=== PATIENT | female | born 1980 | race Caucasian/White ===

== ENCOUNTER 2020-04-26 13:36 | Emergency (ER) | payer OTHER, SELFPAY ==
[2020-04-26 14:01] VITALS: BP 105/47; PULSE 68; RESP 18; TEMP 36.6; O2SAT 99; BMI 23.1
--- NOTE | 2020-04-26 15:04 | US_ITS ---
EXAMINATION: ULTRASOUND OF THE PELVIS CLINICAL INFORMATION: Pain. Irregular bleeding. COMPARISON: None. TECHNIQUE: Transabdominal and transvaginal pelvic ultrasound. A transvaginal study was performed in addition to the transabdominal study which did not yield an adequate examination of the uterus and ovaries due to superimposed distended gas-filled loops of bowel. FINDINGS: The uterus is normal in size and appearance, measuring 8.9 x 5.1 x 6.6 cm longitudinally, anteroposteriorly and transversely. The endometrium is not clearly visualized, likely secondary to the presence of the myometrial fibroid. There is a heterogeneous fibroid seen in the region of the uterine fundus and body measuring 4.5 x 3.9 x 4.3 cm. Nabothian cysts are noted at the cervix. The ovaries bilaterally are visualized and appear normal, with the right ovary measuring 2.6 x 2 x 2.7 cm and the left ovary measuring 3.2 x 1.8 x 2.4 cm. Follicles are seen bilaterally. No adnexal mass or free fluid collection seen. US/US pelvic complete IMPRESSION: Prominent fibroid at the uterine fundus. The endometrium is not well evaluated due to the mass effect by the uterine fibroid. There is no clear endometrial thickening..
[2020-04-26 15:05] VITALS: BP 97/52; PULSE 57; RESP 16; O2SAT 100
--- NOTE | 2020-04-26 15:05 | US_ITS ---
EXAMINATION: ULTRASOUND OF THE PELVIS CLINICAL INFORMATION: Pain. Irregular bleeding. COMPARISON: None. TECHNIQUE: Transabdominal and transvaginal pelvic ultrasound. A transvaginal study was performed in addition to the transabdominal study which did not yield an adequate examination of the uterus and ovaries due to superimposed distended gas-filled loops of bowel. FINDINGS: The uterus is normal in size and appearance, measuring 8.9 x 5.1 x 6.6 cm longitudinally, anteroposteriorly and transversely. The endometrium is not clearly visualized, likely secondary to the presence of the myometrial fibroid. There is a heterogeneous fibroid seen in the region of the uterine fundus and body measuring 4.5 x 3.9 x 4.3 cm. Nabothian cysts are noted at the cervix. The ovaries bilaterally are visualized and appear normal, with the right ovary measuring 2.6 x 2 x 2.7 cm and the left ovary measuring 3.2 x 1.8 x 2.4 cm. Follicles are seen bilaterally. No adnexal mass or free fluid collection seen. US/US transvaginal IMPRESSION: Prominent fibroid at the uterine fundus. The endometrium is not well evaluated due to the mass effect by the uterine fibroid. There is no clear endometrial thickening..
[2020-04-26 15:23] LABS: Basophils Absolute Auto 0.1 X10*3/uL (0.0-0.2); Basophils Percent Auto 0.6 % (0-2); Eosinophils Absolute Auto 0.2 X10*3/uL (0.0-0.4); Eosinophils Percent Auto 1.9 % (0-4); Hematocrit 34.1 % (37-47); Hemoglobin 11.2 g/dl (12.0-16.0); Imm Gran Abs Auto 0.02 X10*3/uL (0.00-0.03); Imm Gran Pct Auto 0.2 % (0.0-0.4); Lymphocytes Absolute Auto 2.9 X10*3/uL (1.2-4.9); Lymphocytes Percent Auto 32.1 % (20-40); MANUAL DIFF FLAG NO; Mean Corpuscular HGB Conc 32.8 g/dl (31.0-35.0); Mean Corpuscular Hemoglobin 29.7 pg (27.0-33.0); Mean Corpuscular Volume 90.5 fL (80-98); Mean Platelet Volume 11.6 fL (9.4-12.3); Monocytes Absolute Auto 0.5 X10*3/uL (0.1-1.2); Monocytes Percent Auto 5.5 % (2-11); Neutrophils Absolute Auto 5.3 X10*3/uL (2.0-8.3); Neutrophils Percent Auto 59.7 % (45-73); Platelet Count 188 X10*3/uL (160-400); Red Blood Count 3.77 X10*6/uL (4.20-5.50); Red Cell Distribution Width 13.3 % (11.0-16.0); White Blood Count 8.9 X10*3/uL (4.8-10.8)
[2020-04-26 15:25] LABS: Glucose Urine UA NEG (NEG); Leukocyte Esterase Urine 1+ (NEG); Nitrite Urine POS (NEG); Specific Gravity - Urine 1.015 (1.005-1.025); Urine Blood 3+ (NEG); Urine Ketones 5 MG/DL (NEG); Urine Protein 2+ MG/DL (NEG-TRACE)
[2020-04-26 15:26] LABS: Appearance Urine CLOUDY; Color Urine RED
[2020-04-26 15:27] LABS: UPreg QC Valid YES; Urine Pregnancy NEGATIVE (NEGATIVE)
[2020-04-26 15:33] LABS: Bacteria Urine 1+ /LPF; RBC Urine TNTC /HPF (0); Squamous Epithelial Cell Urine 1+ /LPF; WBC Urine 0 /HPF (0-4)
--- NOTE | 2020-04-26 15:37 | PC.NURSE ---
patient currently at ultrasound
[2020-04-26 15:53] LABS: Alanine Aminotransferase 12 U/L (0-31); Albumin Level 3.7 g/dL (3.5-5.0); Alkaline Phosphatase 61 U/L (39-117); Anion Gap 9 (12-20); Aspartate Amino Transferase 16 U/L (5-31); Bilirubin Total 0.3 mg/dL (0.0-1.0); Blood Urea Nitrogen 15 mg/dL (9-16); Calcium 8.4 mg/dL (8.4-10.2); Carbon Dioxide 28 mmol/L (22-29); Chloride 108 mmol/L (96-108); Creatinine Clr Calc Pharmacy 100.9; Estimated Glomerular Filt Rate > 60; Glucose Random 82 mg/dL (60-115); Potassium 3.6 mmol/l (3.3-5.1); Sodium 141 mmol/L (135-145); Total Protein 6.1 g/dL (6.5-8.0)
--- NOTE | 2020-04-26 17:45 | ED_ITS ---
HPI - Female Genitourinary General Chief complaint: Vaginal Bleeding Stated complaint: VAGINAL BLEEDING Time Seen by Provider: 04/26/20 14:41 Source: patient Mode of arrival: ambulatory Limitations: no limitations History of Present Illness HPI Narrative: States she has been having prolonged periods for several years now has seen furniture rental consultant at [facility] they did a workup unclear source last month her period was beginning of the month and lasted for additional week this month her period started at the beginning of the month and still it continues to have intermittent vaginal bleeding. She does report slight dysuria at times with slight suprapubic pain. She denies any nausea vomiting diarrhea. No back pain. No fever. No vaginal discharge or concern for STI. Severity: mild Female Urogenital Radiation: Non-Radiating Vaginal discharge: none Treatment prior to arrival: none Sexual activity: No Related Data Previous Rx's Medication Instructions Recorded naproxen 500 mg PO BID PRN #14 tab 04/26/20 nitrofurantoin monohyd/m-cryst 100 mg PO Q12H 7 Days #14 cap 04/26/20 [Macrobid] Allergies Allergy/AdvReac Type Severity Reaction Status Date / Time No Known Allergies Allergy Verified 04/26/20 14:03 Review of Systems Review of Systems: Constitutional: No Weight loss, No Fever, No Chills, No Night Sweats, No Fatigue, No Malaise ENT/Mouth: No Hearing loss, No Ear Pain, No Nasal Congestion, No Sinus Pain, No Hoarseness, No sore throat, No Rhinorrhea Eyes: No Eye Pain, No Swelling, No Redness, No Foreign Body, No Discharge, No Vision Changes Cardiovascular: No Chest Pain, No SOB, No Dyspnea on Exertion Respiratory: No Cough, No Sputum, No Wheezing, No Smoke Exposure, No Dyspnea Gastrointestinal: No Nausea, No Vomiting, No Diarrhea, No Constipation, No abdominal Pain Genitourinary: + irregular bleeding, + Dysuria, No Urinary Frequency, No Hematuria, No Urinary Incontinence, No Urgency, No Flank Pain, No Urinary Flow Changes, No Hesitancy Musculoskeletal: No joint pain, No Myalgias, No Joint Swelling Skin: No Skin Lesions, No rash Neuro: No Weakness, No Numbness, No Paresthesias, No Loss of Consciousness, No Dizziness, No Headache Psych: No Social Issues Heme/Lymph: No Bruising, No Bleeding,No Lymphadenopathy Endocrine: No Polyuria, No Polydipsia, No Temperature Intolerance Yes all other systems are reviewed and are negative [facility] Past Medical History Attestation statement: The following information was validated with the patient. Medical History (Updated 04/26/20 @ 17:48 by Travis Orlando NP) Anemia Social History Social History Alcohol intake: current Smoking Status: Current every day smoker Smoked in Last 30 Days: Yes Use of substances other than those prescribed or required for medical reasons: No Advance Directives: No Advance Directives Information Provided: No Physical Exam Vital Signs: Vital Signs: Last Vital Signs Temp 97.8 F 04/26/20 14:01 Pulse 57 04/26/20 15:05 Resp 16 04/26/20 15:05 BP 97/52 L 04/26/20 15:05 Pulse Ox 100 04/26/20 15:05 Body Mass Index 23.1 Reviewed Const: General: cooperative and healthy appearing; No acute distress or intoxicated appearing Nutritional Appearance: average body habitus Orientation/consciousness: patient oriented x3 HENMT: Head: Yes normal to inspection Ears: hearing grossly normal bilate rally Eyes: General: appearance normal, both eyes and all related structures Visual Alfred: normal visual alfred by confrontation Neck: Neck: Yes normal visual inspection and No tender Thyroid: Thyroid normal Chest: Chest palpation & inspection: normal inspection of the chest Resp: Effort & Inspection: normal respiratory effort Cardio: Jugular venous distension: no JVD GI: Inspection: Yes normal to inspection Palpation (GI): Soft to palpation, not firm, nontender, no guarding, not rigid and hepatosplenomegaly present Percussion: Yes normal to percussion Auscultation: normal bowel sounds : General: Yes no CVA tenderness Back/Spine/Pelvis: Back: no CVA tenderness Skin: General skin exam: no rashes or lesions noted Neuro: General: patient oriented x3 Extrem: General: Yes normal to inspection MDM - Female Genitourinary MDM Narrative Medical decision making narrative: Lab/ultrasound findings reviewed. Appears comfortable no pain at this time. No active bleeding at this time. H&H is stable. Will follow-up with her furniture rental consultant team. Differential Diagnosis Differential diagnosis: Likely urinary tract infection and dysmenorrhea; Unli shun bacterial vaginosis, trichomoniasis, cervicitis, ovarian cyst, vaginitis, ruptured ovarian cyst and cyst of Bartholin's gland Medical Records Attestation: I reviewed the patient's medical records. Lab Data Attestation: I reviewed the patient's lab results. Result diagrams: 04/26/20 15:15 04/26/20 15:16 Labs: Lab Results 04/26/20 04/26/20 04/26/20 Range/Units 15:15 15:15 15:16 WBC 8.9 (4.8-10.8) X10*3/uL RBC 3.77 L (4.20-5.50) X10*6/uL Hgb 11.2 L (12.0-16.0) g/dl Hct 34.1 L (37-47) % MCV 90.5 (80-98) fL MCH 29.7 (27.0-33.0) pg MCHC 32.8 (31.0-35.0) g/dl RDW 13.3 (11.0-16.0) % Plt Count 188 (160-400) X10*3/uL MPV 11.6 (9.4-12.3) fL Immature Gran % (Auto) 0.2 (0.0-0.4) % Neut % (Auto) 59.7 (45-73) % Lymph % (Auto) 32.1 (20-40) % Jones % (Auto) 5.5 (2-11) % Eos % (Auto) 1.9 (0-4) % Baso % (Auto) 0.6 (0-2) % Lymph # (Auto) 2.9 (1.2-4.9) X10*3/uL Jones # (Auto) 0.5 (0.1-1.2) X10*3/uL Eos # (Auto) 0.2 (0.0-0.4) X10*3/uL Baso # (Auto) 0.1 (0.0-0.2) X10*3/uL Abs Immat Gran (auto) 0.02 (0.00-0.03) X10*3/uL Absolute Neuts (auto) 5.3 (2.0-8.3) X10*3/uL Absolute Nucleated RBC 0.000 (0.0-0.012) X10*3/uL Nucleated RBC % (auto) 0.0 (0.0-0.2) /100WBC Sodium 141 (135-145) mmol/L Potassium 3.6 (3.3-5.1) mmol/l Chloride 108 (96-108) mmol/L Carbon Dioxide 28 (22-29) mmol/L Anion Gap 9 L (12-20) BUN 15 (9-16) mg/dL Creatinine 0.64 (0.5-1.4) mg/dL Estim Creat Clear Calc 100.9 Estimated GFR > 60 Random Glucose 82 (60-115) mg/dL Calcium 8.4 (8.4-10.2) mg/dL Total Bilirubin 0.3 (0.0-1.0) mg/dL AST 16 (5-31) U/L ALT 12 (0-31) U/L Alkaline Phosphatase 61 (39-117) U/L Total Protein 6.1 L (6.5-8.0) g/dL Albumin 3.7 (3.5-5.0) g/dL Urine Color RED Urine Appearance CLOUDY Urine pH 7.0 (5.0-8.0) Ur Specific [place] 1.015 (1.005-1.025) Urine Protein 2+ H (NEG-TRACE) MG/DL Urine Glucose (UA) NEG (NEG) MG/DL Urine Ketones 5 (NEG) MG/DL Urine Blood 3+ H (NEG) Urine Nitrite POS H (NEG) Ur Leukocyte Esterase 1+ H (NEG) Urine RBC TNTC H (0) /HPF Urine WBC 0 (0-4) /HPF Ur Squamous Epith Cells 1+ /LPF Urine Bacteria 1+ /LPF Urine Test NEGATIVE (NEGATIVE) Discharge Plan Discharge Clinical Impression: Dysfunctional uterine bleeding, UTI (urinary tract infection) Patient Disposition: Home, Self-Care Instructions: Dysfunctional Uterine Bleeding (ED), Urinary Tract Infection in Women (ED) Additional Instructions: Taking medications prescribed Follow-up with your furniture rental consultant team as discussed Return if any concerns or worsening symptoms Thank you Prescriptions: New naproxen 500 mg tablet 500 mg PO BID PRN (Reason: pain) Qty: 14 RF: 0 nitrofurantoin monohyd/m-cryst [Macrobid] 100 mg capsule 100 mg PO Q12H 7 Days Qty: 14 RF: 0 Referrals: Physician,Unknown [Primary Care Provider] - 2 days (Your furniture rental consultant team at [facility]) Braulio Madrigal MD [Physician] - 1 week
[2020-04-26 17:51] VITALS: BP 99/44; PULSE 58; RESP 16; O2SAT 100
== END 2020-04-26 18:00 | disposition home or self-care (01) ==
PROVIDERS: Nurse Practitioner Primary Care; Emergency Provider Emergency Medicine
DX: N93.8 Other specified abnormal uterine and vaginal bleeding (principal); N39.0 Urinary tract infection, site not specified; R10.2 Pelvic and perineal pain; F17.200 Nicotine dependence, unspecified, uncomplicated; Z71.6 Tobacco abuse counseling; Z79.899 Other long term (current) drug therapy
CPT/HCPCS: 36415; 76830; 76856; 80053; 81001; 81025; 85025; 87086; 99284

== ENCOUNTER 2020-09-17 07:27 | Emergency (ER) | payer OTHER, SELFPAY ==
[2020-09-17 07:33] VITALS: BP 105/63; PULSE 90; RESP 16; TEMP 36.6; O2SAT 100; BMI 24.1
[2020-09-17 08:01] VITALS: BP 107/65; PULSE 80; RESP 14; O2SAT 99
--- NOTE | 2020-09-17 08:06 | PC.NURSE ---
pt reports about 3 months ago with perineum bumps that comes and goes some with oozing liquids, some are dry. more itching than painful.
--- NOTE | 2020-09-17 08:34 | ED.SKABFB ---
HPI - Skin/Abscess/Foreign Bdy General Chief complaint: Skin/Abscess/Foreign Body Stated complaint: ABSCESS Time Seen by Provider: 09/17/20 08:25 Source: patient Mode of arrival: ambulatory Limitations: language barrier ([place]aguayan-speaking) History of Present Illness HPI narrative: 40-year-old female with a past medical history of labia abscess presenting to the ED with complaints of smaller pimple to the labia is for the past few days worse today. Reports she has had them drained in the past by her OBGYN and she has stop shaving using any scented lotions or soaps. Denies any fevers, chills, abdominal pain, dysuria, hematuria, abnormal vaginal discharge or thoughts of STDs. MD complaint: abscess/boil Onset (ago): day(s) (Past few days worse today) Location: genitals Severity: mild Quality: aching Pain Consistency: constant Relieving factors: none Exacerbating factors: palpation Context: none Associated symptoms: denies other symptoms Treatments prior to arrival: attempted to drain pus at home Related Data Previous Rx's Medication Instructions Recorded naproxen 500 mg PO BID PRN #14 tab 04/26/20 nitrofurantoin monohyd/m-cryst 100 mg PO Q12H 7 Days #14 cap 04/26/20 [Macrobid] cephalexin 500 mg PO BID 10 Days #20 cap 09/17/20 doxycycline monohydrate 100 mg PO BID 10 Days #20 cap 09/17/20 ibuprofen 800 mg PO Q8H PRN #14 tab 09/17/20 oxycodone-acetaminophen [Percocet] 1 tab PO Q6H PRN #10 tab 09/17/20 Allergies Allergy/AdvReac Type Severity Reaction Status Date / Time No Known Allergies Allergy Verified 04/26/20 14:03 Review of Systems Review of Systems: Constitutional : No Fever, No Chills , no body aches, no recent illness Head/Face: No facial swelling, No facial redness ENT/Mouth : No oral/throat swelling, No Hoarseness, No Swallowing Difficulty Eyes: No Eye Pain, No Swelling, No Redness Cardiovascular : No Chest Pain, No SOB, No palpitations Respiratory : No Cough, No Sputum, No Wheezing, No Smoke Exposure, No Dyspnea Gastrointestinal : No Nausea, No Vomiting, No Diarrhea, No abdominal Pain Genitourinary : No Dysuria, No Urinary Frequency, No Hematuria Musculoskeletal : No joint pain, No Myalgias, No Joint Swelling Skin : positive abscess, No Skin Lesions, No rash Neuro : No Weakness, No Numbness, No Headache, No dizziness, No tingling Psych : No Anxiety/Panic, No Depression Heme/Lymph: No Bruising, No Lymphadenopathy Endocrine : No Polyuria, No Polydipsia Denies changes in lotions or detergents. Denies new medications or any changes in medications. Denies drainage from rash. Denies any recent sick contacts or recent travel. - patient denies a history of MRSA. Yes all other systems are reviewed and are negative [facility] Past Medical History Attestation statement: The following information was validated with the patient. Medical History Anemia Social History Social History Alcohol intake: never Smoking Status: Current every day smoker Use of substances other than those prescribed or required for medical reasons: No Advance Directives: No Physical Exam Vital Signs: Vital Signs: Last Vital Signs Temp 98 F 09/17/20 07:33 Pulse 80 09/17/20 08:01 Resp 14 09/17/20 08:01 BP 107/65 09/17/20 08:01 Pulse Ox 99 09/17/20 08:01 Body Mass Index 24.1 vital signs have been reviewed as normal and appeared to be correct. Blood pressure normal. Heart rate normal. Respiration rate normal. Temperature normal. Oxygen saturation normal. Appearance: Alert. Oriented X3. No acute distress. Head: Normal external exam. Normocephalic. Eyes: PERRLA. EOMI. Conjunctiva and sclera normal. Eyelids normal. ENT: Pharynx normal. Uvula midline. Moist mucous membranes. No trismus noted. No drooling noted. No muffled voice noted. Neck: Normal inspection. Neck supple. FROM. No adenopathy. No meningeal signs. CVS: Normal heart rate and rhythm. Heart sound normal. No murmurs noted. Pulses normal throughout. Respiratory: No respiratory distress. Painless inspiration. Breath sounds normal. No wheezes/rales/rhonchi noted. Chest nontender. No accessory muscle usage noted or decreased air movement noted. Abdomen: Soft and nontender. Nondistended. No guarding. No rigidity. Bowel sounds normal in all 4 quadrants. No distention noted. No organomegaly noted. No visible injury noted. No rebound tenderness. Negative Rovsing sign. Negative obturator's sign. Negative psoas sign. Negative Beal sign. : External exam patient noted to have multiple small pimples noted to labia not consistent with abscess. No streaking. Back: No CVA tenderness. Full range of motion noted. Skin: Skin warm and dry. Normal skin color. Normal skin turgor. No rashes/lesions/lacerations noted. Extremities: Extremities exhibit normal range of motion. Extremities nontender. Neuro: Oriented X 3. No motor deficit. No sensory deficit. Reflexes normal. Course Course Course Narrative: 40-year-old female with multiple small labia pimples. No consistent with abscesses. Not consistent with Bartholin abscess. Patient not concerned for any STDs. Does not have a history of MRSA. Will DC home with antibiotics and instructions to apply warm compresses at least 4 to 5 times a day for 15-20 minutes and to follow-up with her OBGYN and to return if any new or worsening symptoms. Patient understands agrees with this plan. MDM - Skin/Abscess/Foreign Bdy Medical Records Attestation: I reviewed the patient's medical records. Discharge Plan Discharge Clinical Impression: Pimples Patient Disposition: Home, Self-Care Instructions: Abscess (ED) Prescriptions: New ibuprofen 800 mg tablet 800 mg PO Q8H PRN (Reason: pain) Qty: 14 RF: 0 doxycycline monohydrate 100 mg capsule 100 mg PO BID 10 Days Qty: 20 RF: 0 cephalexin 500 mg capsule 500 mg PO BID 10 Days Qty: 20 RF: 0 oxycodone-acetaminophen [Percocet] 5-325 mg tablet 1 tab PO Q6H PRN (Reason: pain) Qty: 10 RF: 0 No Action naproxen 500 mg tablet 500 mg PO BID PRN (Reason: pain) Qty: 14 RF: 0 nitrofurantoin monohyd/m-cryst [Macrobid] 100 mg capsule 100 mg PO Q12H 7 Days Qty: 14 RF: 0 Referrals: Physician,Unknown [Primary Care Provider] - 2 days (your obgyn/pcp) Stand Alone Forms: Work/School Release Print Language: [place]
== END 2020-09-17 09:17 | disposition home or self-care (01) ==
PROVIDERS: Emergency Provider Emergency Medicine Emergency Medical Services
DX: R23.8 Other skin changes (principal); F17.200 Nicotine dependence, unspecified, uncomplicated
CPT/HCPCS: 99283; 99284

== ENCOUNTER 2020-10-14 06:26 | Emergency (ER) | payer OTHER, SELFPAY ==
--- NOTE | ~2020-10-14 | US_ITS ---
EXAMINATION: PELVIC ULTRASOUND CLINICAL INFORMATION: Pelvic pain and bleeding COMPARISON: Previous pelvic ultrasound April 2017 TECHNIQUE: Transabdominal and transvaginal pelvic ultrasound was performed. Transvaginal exam was performed for better visualization of the uterus and ovaries. FINDINGS: The uterus is anteverted and measures 9.4 x 5.8 x 6.6 cm in dimension. There is a large heterogeneous a slightly hyperechoic lesion in the anterior uterine body and upper fundus abutting the endometrium. This measures 3.8 x 2.9 x 6.3 cm compared to 4.5 x 3.9 x 4.3 cm on prior exam. This probably represents a fibroid or adenomyoma. The endometrium is distorted by the lesion. Endometrial thickness measures 8 mm. There is swirling echogenic material suggestive of active bleeding in the endometrial cavity. There are nabothian cysts in the cervix. The right ovary measures 3 x 2.8 x 2.3 cm. There are multiple right ovarian simple cysts, largest measuring 1.5 x 1.1 x 1.5 cm. there is a smaller 1.2 x 1 x 1.1 cm complex cyst with slightly thickened wall. The left ovary measures 3.8 x 1.6 x 1.7 cm. There is a new small echogenic focus in the left ovary measuring 5 x 2 x 4 mm of uncertain etiology. There is no fluid in the pelvis. US/US transvaginal IMPRESSION: Large slightly hyperechoic heterogeneous lesion in the central uterus indenting the endometrium probably representing a fibroid or adenomyoma. The endometrium does not appear thickened. There is swirling echogenic material in the endometrium suggestive of active bleeding. Multiple small right ovarian cysts.
--- NOTE | ~2020-10-14 | US_ITS ---
EXAMINATION: PELVIC ULTRASOUND CLINICAL INFORMATION: Pelvic pain and bleeding COMPARISON: Previous pelvic ultrasound April 2017 TECHNIQUE: Transabdominal and transvaginal pelvic ultrasound was performed. Transvaginal exam was performed for better visualization of the uterus and ovaries. FINDINGS: The uterus is anteverted and measures 9.4 x 5.8 x 6.6 cm in dimension. There is a large heterogeneous a slightly hyperechoic lesion in the anterior uterine body and upper fundus abutting the endometrium. This measures 3.8 x 2.9 x 6.3 cm compared to 4.5 x 3.9 x 4.3 cm on prior exam. This probably represents a fibroid or adenomyoma. The endometrium is distorted by the lesion. Endometrial thickness measures 8 mm. There is swirling echogenic material suggestive of active bleeding in the endometrial cavity. There are nabothian cysts in the cervix. The right ovary measures 3 x 2.8 x 2.3 cm. There are multiple right ovarian simple cysts, largest measuring 1.5 x 1.1 x 1.5 cm. there is a smaller 1.2 x 1 x 1.1 cm complex cyst with slightly thickened wall. The left ovary measures 3.8 x 1.6 x 1.7 cm. There is a new small echogenic focus in the left ovary measuring 5 x 2 x 4 mm of uncertain etiology. There is no fluid in the pelvis. US/US pelvic complete IMPRESSION: Large slightly hyperechoic heterogeneous lesion in the central uterus indenting the endometrium probably representing a fibroid or adenomyoma. The endometrium does not appear thickened. There is swirling echogenic material in the endometrium suggestive of active bleeding. Multiple small right ovarian cysts.
--- NOTE | 2020-10-14 07:32 | ED.FEMALEGU ---
HPI - Female Genitourinary General Chief complaint: Urogenital-Female Stated complaint: Vaginal Bleeding Time Seen by Provider: 10/14/20 07:32 Source: patient, old records reviewed and translator interpreter Mode of arrival: ambulatory Limitations: no limitations History of Present Illness HPI Narrative: 40 yo female wih hx of labial abscess/boils and DUB comes in with c/o bumps still on her labia for months as well as 2 weeks of her menses - some clots 5 pads a day, has not been able to get a hold of her OBGYN MD elicited complaint: vaginal bleeding and other (bumps on labia) Pertinent past history: other (dysfunctional uterine bleeding, boils on labia) Onset (ago): week(s) (2) Location of symptoms: external genitalia Severity: mild Vaginal discharge: none Vaginal bleeding: moderate and clots Exacerbating factors: none Relieving factors: none Associated symptoms: denies other symptoms Treatment prior to arrival: none Related Data Previous Rx's Medication Instructions Recorded naproxen 500 mg PO BID PRN #14 tab 04/26/20 nitrofurantoin monohyd/m-cryst 100 mg PO Q12H 7 Days #14 cap 04/26/20 [Macrobid] cephalexin 500 mg PO BID 10 Days #20 cap 09/17/20 doxycycline monohydrate 100 mg PO BID 10 Days #20 cap 09/17/20 ibuprofen 800 mg PO Q8H PRN #14 tab 09/17/20 oxycodone-acetaminophen [Percocet] 1 tab PO Q6H PRN #10 tab 09/17/20 chlorhexidine gluconate 1 appl TOPICAL ONCE #473 ml 10/14/20 [Antiseptic Skin Clnsr(chlorhe)] medroxyprogesterone [Provera] 10 mg PO DAILY 9 Days #9 tab 10/14/20 mupirocin 1 appl TOPICAL BID 7 Days #15 g 10/14/20 Allergies Allergy/AdvReac Type Severity Reaction Status Date / Time No Known Allergies Allergy Verified 04/26/20 14:03 Review of Systems Review of Systems: Constitutional : No Fever, No Chills ENT/Mouth : No sore throat, No Rhinorrhea Eyes: No Eye Pain, No Redness Cardiovascular : No Chest Pain, No SOB Respiratory : No Cough, No Sputum, No Wheezing Gastrointestinal : no Nausea, No Vomiting, No Diarrhea, no abdominal pain, Genitourinary : positive irregular bleeding, No Dysuria, No Urinary Frequency, no pelvic pain Musculoskeletal : No Myalgias Skin : No rash, pos hard bumps on labia Neuro : No Weakness, No Headache Psych : No Anxiety/Panic, No Depression Heme/Lymph: No bruising, No Lymphadenopathy Endocrine : No Polyuria, No Polydipsia All other systems reviewed and are negative FORMERLY [facility], [facility]–1983 Past Medical History Attestation statement: The following information was validated with the patient. Medical History Anemia Labial abscess Social History Social History Alcohol intake: never Smoking Status: Current every day smoker Advance Directives: No Patient : No Physical Exam Vital Signs: Vital Signs: Last Vital Signs Temp 98.2 F 10/14/20 07:35 Pulse 61 10/14/20 07:35 Resp 16 10/14/20 07:35 BP 120/59 L 10/14/20 07:35 Pulse Ox 100 10/14/20 07:35 Body Mass Index 24.3 Appearance: Alert. Oriented X3. No acute distress. Eyes: Pupils equal, round and reactive to light. ENT: Pharynx normal. Neck: Normal inspection. Neck supple. CVS: Normal heart rate and rhythm. Pulses normal. Respiratory: No respiratory distress. Breath sounds normal. Abdomen: Soft and nontender. : scant dark blood noted no clots, hard firm non fluctuant, non erythematous less than 1 cm lesions on labia Skin: Skin warm and dry. Normal skin color. Normal skin turgor. Extremities: No lower extremity edema. No calf ttp Neuro: Oriented X 3. No motor deficit. No sensory deficit. Course Course Course Narrative: will place on chlorhexidine wash and start on provera, VS stable, H/H stable no sig bleeding here will instruct her to follow up with her OBGYN MDM - Female Genitourinary MDM Narrative Medical decision making narrative: 40 yo female here with labial bumps (no new infections not abscesses seem to be old scars from prior boils) also c/o prolonged bleeding hx of same in past, will obtain labs, US to evaluate endometrium/fibroids - possibly PO provera to control bleeding, dispo per results and findings. Lab Data Result diagrams: 10/14/20 08:01 10/14/20 08:01 Labs: Lab Results 10/14/20 10/14/20 10/14/20 Range/Units 08:01 08:01 08:01 WBC 6.6 (4.8-10.8) X10*3/uL RBC 4.35 (4.20-5.50) X10*6/uL Hgb 12.6 (12.0-16.0) g/dl Hct 38.9 (37-47) % MCV 89.4 (80-98) fL MCH 29.0 (27.0-33.0) pg MCHC 32.4 (31.0-35.0) g/dl RDW 14.0 (11.0-16.0) % Plt Count 200 (160-400) X10*3/uL MPV 11.6 (9.4-12.3) fL Immature Gran % (Auto) 0.3 (0.0-0.4) % Neut % (Auto) 64.4 (45-73) % Lymph % (Auto) 26.5 (20-40) % Carter % (Auto) 6.6 (2-11) % Eos % (Auto) 1.7 (0-4) % Baso % (Auto) 0.5 (0-2) % Lymph # (Auto) 1.7 (1.2-4.9) X10*3/uL Carter # (Auto) 0.4 (0.1-1.2) X10*3/uL Eos # (Auto) 0.1 (0.0-0.4) X10*3/uL Baso # (Auto) 0.0 (0.0-0.2) X10*3/uL Abs Immat Gran (auto) 0.02 (0.00-0.03) X10*3/uL Absolute Neuts (auto) 4.2 (2.0-8.3) X10*3/uL Absolute Nucleated RBC 0.000 (0.0-0.012) X10*3/uL Nucleated RBC % (auto) 0.0 (0.0-0.2) /100WBC PT 12.2 (10.8-13.0) SEC INR 1.0 (0.9-1.1) APTT 34.6 (24.1-38.0) SEC Sodium 140 (135-145) mmol/L Potassium 4.4 (3.3-5.1) mmol/L Chloride 108 (96-108) mmol/L Carbon Dioxide 27 (22-29) mmol/L Anion Gap 9 L (12-20) BUN 12 (9-16) mg/dL Creatinine 0.64 (0.5-1.4) mg/dL Estim Creat Clear Calc 113.6 Estimated GFR > 60 Random Glucose 85 (60-115) mg/dL Calcium 9.0 D (8.4-10.2) mg/dL Beta HCG, Quant mIU/mL 10/14/20 Range/Units 08:01 WBC (4.8-10.8) X10*3/uL RBC (4.20-5.50) X10*6/uL Hgb (12.0-16.0) g/dl Hct (37-47) % MCV (80-98) fL MCH (27.0-33.0) pg MCHC (31.0-35.0) g/dl RDW (11.0-16.0) % Plt Count (160-400) X10*3/uL MPV (9.4-12.3) fL Immature Gran % (Auto) (0.0-0.4) % Neut % (Auto) (45-73) % Lymph % (Auto) (20-40) % Carter % (Auto) (2-11) % Eos % (Auto) (0-4) % Baso % (Auto) (0-2) % Lymph # (Auto) (1.2-4.9) X10*3/uL Carter # (Auto) (0.1-1.2) X10*3/uL Eos # (Auto) (0.0-0.4) X10*3/uL Baso # (Auto) (0.0-0.2) X10*3/uL Abs Immat Gran (auto) (0.00-0.03) X10*3/uL Absolute Neuts (auto) (2.0-8.3) X10*3/uL Absolute Nucleated RBC (0.0-0.012) X10*3/uL Nucleated RBC % (auto) (0.0-0.2) /100WBC PT (10.8-13.0) SEC INR (0.9-1.1) APTT (24.1-38.0) SEC Sodium (135-145) mmol/L Potassium (3.3-5.1) mmol/L Chloride (96-108) mmol/L Carbon Dioxide (22-29) mmol/L Anion Gap (12-20) BUN (9-16) mg/dL Creatinine (0.5-1.4) mg/dL Estim Creat Clear Calc Estimated GFR Random Glucose (60-115) mg/dL Calcium (8.4-10.2) mg/dL Beta HCG, Quant < 2 mIU/mL Discharge Plan Discharge Clinical Impression: DUB (dysfunctional uterine bleeding), Boil Patient Disposition: Home, Self-Care Instructions: Dysfunctional Uterine Bleeding (ED), Furunculosis and Carbunculosis (ED) Additional Instructions: return to ED for any worsening symptoms or concerns call your OBGYN today US report: US/US pelvic complete IMPRESSION: Large slightly hyperechoic heterogeneous lesion in the central uterus indenting the endometrium probably representing a fibroid or adenomyoma. The endometrium does not appear thickened. There is swirling echogenic material in the endometrium suggestive of active bleeding. Multiple small right ovarian cysts. Prescriptions: New medroxyprogesterone [Provera] 10 mg tablet 10 mg PO DAILY 9 Days Qty: 9 RF: 0 chlorhexidine gluconate [Antiseptic Skin Clnsr(chlorhe)] 4 % liquid 1 appl topical ONCE Qty: 473 RF: 1 mupirocin 2 % ointment 1 appl topical BID 7 Days Qty: 15 RF: 0 No Action ibuprofen 800 mg tablet 800 mg PO Q8H PRN (Reason: pain) Qty: 14 RF: 0 doxycycline monohydrate 100 mg capsule 100 mg PO BID 10 Days Qty: 20 RF: 0 cephalexin 500 mg capsule 500 mg PO BID 10 Days Qty: 20 RF: 0 oxycodone-acetaminophen [Percocet] 5-325 mg tablet 1 tab PO Q6H PRN (Reason: pain) Qty: 10 RF: 0 naproxen 500 mg tablet 500 mg PO BID PRN (Reason: pain) Qty: 14 RF: 0 nitrofurantoin monohyd/m-cryst [Macrobid] 100 mg capsule 100 mg PO Q12H 7 Days Qty: 14 RF: 0 Stand Alone Forms: Work/School Release Print Language: Sami
[2020-10-14 07:35] VITALS: BP 120/59; PULSE 61; RESP 16; TEMP 36.8; O2SAT 100; BMI 24.3
[2020-10-14 08:07] LABS: MANUAL DIFF FLAG NO
[2020-10-14 08:12] LABS: Basophils Percent Auto 0.5 % (0-2); Eosinophils Absolute Auto 0.1 X10*3/uL (0.0-0.4); Eosinophils Percent Auto 1.7 % (0-4); Hematocrit 38.9 % (37-47); Hemoglobin 12.6 g/dl (12.0-16.0); Imm Gran Abs Auto 0.02 X10*3/uL (0.00-0.03); Imm Gran Pct Auto 0.3 % (0.0-0.4); Lymphocytes Absolute Auto 1.7 X10*3/uL (1.2-4.9); Lymphocytes Percent Auto 26.5 % (20-40); Mean Corpuscular HGB Conc 32.4 g/dl (31.0-35.0); Mean Corpuscular Volume 89.4 fL (80-98); Mean Platelet Volume 11.6 fL (9.4-12.3); Monocytes Absolute Auto 0.4 X10*3/uL (0.1-1.2); Monocytes Percent Auto 6.6 % (2-11); Neutrophils Absolute Auto 4.2 X10*3/uL (2.0-8.3); Neutrophils Percent Auto 64.4 % (45-73); Platelet Count 200 X10*3/uL (160-400); Red Blood Count 4.35 X10*6/uL (4.20-5.50); White Blood Count 6.6 X10*3/uL (4.8-10.8)
[2020-10-14 08:19] LABS: Prothrombin Time 12.2 SEC (10.8-13.0)
[2020-10-14 08:21] LABS: Partial Thromboplastin Time 34.6 SEC (24.1-38.0)
[2020-10-14 08:40] LABS: Anion Gap 9 (12-20); Blood Urea Nitrogen 12 mg/dL (9-16); Carbon Dioxide 27 mmol/L (22-29); Chloride 108 mmol/L (96-108); Creatinine Clr Calc Pharmacy 113.6; Estimated Glomerular Filt Rate > 60; Glucose Random 85 mg/dL (60-115); Potassium 4.4 mmol/L (3.3-5.1); Sodium 140 mmol/L (135-145)
[2020-10-14 08:58] LABS: HCG Quantitative < 2 mIU/mL
[2020-10-14] MEDS: medroxyPROGESTERone Acetate 5 MG TABLET 10 MG PO (09:55)
== END 2020-10-14 09:58 | disposition home or self-care (01) ==
PROVIDERS: Emergency Provider Emergency Medicine
DX: N93.8 Other specified abnormal uterine and vaginal bleeding (principal); N76.4 Abscess of vulva; N83.201 Unspecified ovarian cyst, right side; N88.8 Other specified noninflammatory disorders of cervix uteri; F17.200 Nicotine dependence, unspecified, uncomplicated
CPT/HCPCS: 36415; 76830; 76856; 80048; 84702; 85025; 85610; 85730; 99282; 99284

== ENCOUNTER 2022-01-13 07:59 | Emergency (ER) | payer OTHER, SELFPAY ==
--- NOTE | ~2022-01-13 | US_ITS ---
EXAMINATION:US pelvic and transvaginal CLINICAL INFORMATION: Reason for Exam aBDMINAL PAIN, VAG BLEEDINGH COMPARISON: Multiple prior exams most recent 10/14/2020 LMP: 12/28/2021 FINDINGS: UTERUS: The uterus is anteverted. Size: 10.4 x 6.1 x 7.1 cm. Uterine mass: Heterogeneous enlarged uterus, normal myometrium might have been completely replaced by mass such as fibroids or adenomyomatosis. Cervix: Grossly unremarkable. Endometrium: Endometrium not visualized obscured by heterogeneity and shadowing from the uterus wall. ADNEXA: Normal Right ovary: Small cyst right ovary probably a follicle 1.4 x 1.3 x 1.4 cm. Left ovary: Normal in size. Doppler exam: Normal Doppler flow identified in both ovaries. FREE FLUID: Trace amount of free fluid. OTHER FINDINGS: None US/US pelvic and transvaginal IMPRESSION: *Redemonstration of enlarged heterogeneous uterine matrix, might be sequela of large fibroid engulfing/replacing the myometrial wall and or adenomyomatosis. LAMINATION INSPECTOR consultation and/or follow-up outpatient MRI pelvis with contrast recommended. *Endometrium could not be well delineated on today's exam obscured by heterogeneity shadowing from the uterine wall. *Cystic structure right ovary likely dominant follicle.
[2022-01-13 08:02] VITALS: BP 130/70; PULSE 58; RESP 14; TEMP 36.7; O2SAT 99; BMI 26.6
[2022-01-13 08:11] LABS: MANUAL DIFF FLAG NO
[2022-01-13 08:12] LABS: Basophils Absolute Auto 0.1 X10*3/uL (0.0-0.2); Basophils Percent Auto 0.8 % (0-2); Eosinophils Absolute Auto 0.2 X10*3/uL (0.0-0.4); Eosinophils Percent Auto 2.4 % (0-4); Hematocrit 38.8 % (37.0-47.0); Hemoglobin 12.6 g/dl (12.0-16.0); Imm Gran Abs Auto 0.03 X10*3/uL (0.00-0.03); Imm Gran Pct Auto 0.4 % (0.0-0.4); Lymphocytes Absolute Auto 1.5 X10*3/uL (1.2-4.9); Lymphocytes Percent Auto 18.3 % (20-40); Mean Corpuscular HGB Conc 32.5 g/dl (31.0-35.0); Mean Corpuscular Hemoglobin 27.9 pg (27.0-33.0); Mean Corpuscular Volume 85.8 fL (80.0-98.0); Mean Platelet Volume 10.9 fL (9.4-12.3); Monocytes Absolute Auto 0.5 X10*3/uL (0.1-1.2); Monocytes Percent Auto 6.5 % (2-11); Neutrophils Absolute Auto 5.7 x10*3/uL (2.0-8.3); Neutrophils Percent Auto 71.6 % (45-73); Platelet Count 246 X10*3/uL (160-400); Red Blood Count 4.52 X10*6/uL (4.20-5.50); Red Cell Distribution Width 14.5 % (11.0-16.0)
[2022-01-13 08:13] LABS: Appearance Urine HAZY; Color Urine YELLOW; Glucose Urine UA NEG (NEG); Leukocyte Esterase Urine NEG (NEG); Nitrite Urine NEG (NEG); Specific Gravity - Urine 1.015 (1.005-1.025); UACC Culture Trigger NO; Urine Blood 3+ (NEG); Urine Ketones NEG (NEG); Urine Protein NEG (NEG-TRACE)
[2022-01-13 08:19] LABS: UPreg QC Valid YES; Urine Pregnancy NEGATIVE (NEGATIVE)
[2022-01-13 08:25] LABS: Anion Gap 11 (12-20); Blood Urea Nitrogen 8 mg/dL (9-16); Calcium 8.9 mg/dL (8.4-10.2); Carbon Dioxide 27 mmol/L (22-29); Chloride 107 mmol/L (96-108); Creatinine Clr Calc Pharmacy 106.3; Estimated Glomerular Filt Rate > 60; Glucose Random 91 mg/dL (60-115); Potassium 4.5 mmol/L (3.3-5.1); Sodium 140 mmol/L (135-145)
[2022-01-13 08:42] LABS: Squamous Epithelial Cell Urine 1+ /LPF; WBC Urine 0 /HPF (0-4)
--- NOTE | 2022-01-13 09:15 | ED_ITS ---
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 Patient tells me she had 7 days of a normal cycle for her. After that she has had intermittent bleeding. She uses a max of 2 pads and 24 hours. She does have some associated lower abdominal cramping. She has a history of a tubal ligation. She is sexually active with 1 male partner. She has had irregular menses for over 1 year. [facility]. 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 She has seen them intermittently for bleeding. She had an ultrasound in March which she tells me showed a uterine fibroid. She followed up with them in November and had a Pap smear which tells me was normal. She is not currently on any contraception. Related Data Previous Rx's Medication Instructions Recorded naproxen 500 mg tablet 500 mg PO BID PRN pain #14 tabs 04/26/20 nitrofurantoin 100 mg PO Q12H 7 days #14 caps 04/26/20 monohydrate/macrocrystals 100 mg capsule (Macrobid) cephalexin 500 mg capsule 500 mg PO BID 10 days #20 caps 09/17/20 doxycycline monohydrate 100 mg 100 mg PO BID 10 days #20 caps 09/17/20 capsule ibuprofen 800 mg tablet 800 mg PO Q8H PRN pain #14 tabs 09/17/20 oxycodone-acetaminophen 5 mg-325 1 tab PO Q6H PRN pain #10 tabs 09/17/20 mg tablet (Percocet) chlorhexidine gluconate 4 % 1 appl topical ONCE 0 days #473 mL 10/14/20 topical liquid (Antiseptic Skin Cleanser (chlorhexidine)) medroxyprogesterone 10 mg tablet 10 mg PO DAILY 9 days #9 tabs 10/14/20 (Provera) mupirocin 2 % topical ointment 1 appl topical BID 7 days #15 grams 10/14/20 ibuprofen 800 mg tablet 800 mg PO Q8H PRN pain #60 tabs 01/13/22 Allergies Allergy/AdvReac Type Severity Reaction Status Date / Time No Known Allergies Allergy Verified 04/26/20 14:03 Review of Systems Review of Systems Yes all other systems are reviewed and are negative Constitutional: Reports no additional constitutional complaints, Denies body ache(s), Denies chills, Denies fever(s), Denies headache(s) and Denies weakness Eyes: Reports no additional eye complaints and Denies change in vision Reports system reviewed and no additional complaints, except as documented, Denies dizziness, Denies headache(s), Denies nasal congestion, Denies nasal discharge and Denies neck pain Cardiovascular: Reports no additional cardiovascular complaints, Denies chest pain, Denies leg edema and Denies dyspnea Respiratory: Reports no additional respiratory complaints, Denies cough and Denies dyspnea Gastrointestinal: Reports no additional gastrointestinal complaints, Denies abdominal pain, Denies diarrhea, Denies nausea and Denies vomiting Genitourinary: Reports no additional female genitourinary complaints, Reports abnormal vaginal bleeding, Denies dysuria, Reports pelvic pain, Denies urinary incontinence, Denies urinary hesitancy, Denies urinary urgency, Denies vaginal discharge, Denies vaginal dryness and Denies vaginal pruritus Musculoskeletal: Reports no additional musculoskeletal complaints, Denies back pain, Denies arthralgias, Denies joint swelling, Denies neck pain, Denies numbness and Denies tingling Skin/Breast: Reports system reviewed and no additional complaints, except as docu and Denies rash Reports system reviewed and no additional complaints, except as documented, Denies dizziness, Denies headache(s), Denies numbness, Denies tingling and Denies weakness PMF Past Medical History Attestation statement: The following information was validated with the patient. Source: old records reviewed and nursing notes reviewed Medical History Anemia Labial abscess Social History Social History Alcohol intake: never Advance Directives: No Advance Directives Information Provided: No Physical Exam ED Vital Signs: Vital Signs - 24 hr 01/13/22 08:02 01/13/22 10:57 01/13/22 12:07 Temperature 98.1 F 98.6 F 98.3 F Pulse Rate 58 48 L 50 Respiratory Rate 14 12 16 Blood Pressure 130/70 127/75 108/50 L Pulse Oximetry 99 100 99 Oxygen Delivery Method Room Air Room Air Room Air BMI result Body Mass Index 26.6 Const General: cooperative, healthy appearing, comfortable and no acute distress Orientation/consciousness: patient oriented x3 Limitations: no limitations HENNV Head: Yes normal to inspection Ears: hearing grossly normal bilaterally General nose exam: Normal external nose present Face and sinus: Yes normal facial exam Mouth: Normal oral and palatal mucosa present Throat: Yes posterior oropharynx normal, Yes tonsils normal and Yes uvula midline Eyes General: appearance normal, both eyes and all related structures Pupils: Equal, round and reactive pupils present Neck Neck: Yes normal visual inspection and Yes full ROM Chest Chest palpation & inspection: normal inspection of the chest Resp Effort & Inspection: normal respiratory effort Auscultation: clear to auscultation bilaterally Cardio Rate: regular rate Rhythm: regular rhythm Peripheral pulses: Peripheral pulses 2+ throughout GI Inspection: Yes normal to inspection Palpation (GI): Soft to palpation and nontender Other: +vag bleding-small with no clots External Female Exam: normal external appearance Speculum Exam - Cervix: normal appearance of the cervix Back/Spine/Pelvis Thoracic/Lumbar Spine: thoracic and lumbar spine normal to inspection Skin General skin exam: no rashes or lesions noted Neuro General: patient oriented x3 and moves all extremities Cranial nerves: Yes Equal, round and reactive pupils present Gait exam (Neuro): Normal gait present Extrem General: Yes normal to inspection, Yes no pedal edema and Yes no calf tenderness Course Course Course Narrative: ultrasound shows *Redemonstration of enlarged heterogeneous uterine matrix, might be sequela of large fibroid engulfing/replacing the myometrial wall and or adenomyomatosis. POWER PLANT ASSISTANT consultation and/or follow-up outpatient MRI pelvis with contrast recommended. ? *Endometrium could not be well delineated on today's exam obscured by heterogeneity shadowing from the uterine wall. ? *Cystic structure right ovary likely dominant follicle.? - this was seen on ultrasound 10/14/2020 - I did speak to the patient with the converter supervisor. She tells me she has been seen at [facility] for this before. patient tells me that she believe she had an endometrial biopsy in the past and it was normal.. Her pelvic exam shows a scant amount of blood with a stable hemoglobin and vital signs so I do not believe that she is bleeding heavily. She should follow-up next week with her OBGYN. reviewed worrisome signs and symptoms of when to return to the emergency department. MDM - Abdominal Pain MDM Narrative Medical decision making narrative: 41- year old female with a history of irregular vaginal bleeding here with intermittent vaginal bleeding since December 28. This is with associated abdominal cramping. will check labs, urine , pelvic exam, pelvic ultrasound consider , dysmenorrhea, uterine fibroid, Medical Records Attestation: I reviewed the patient's medical records. Lab Data Attestation: I reviewed the patient's lab results. Result diagrams: 01/13/22 08:04 01/13/22 08:04 Labs: Lab Results 01/13/22 01/13/22 01/13/22 Range/Units 08:04 08:04 08:04 WBC 8.0 (4.8-10.8) X10*3/uL RBC 4.52 (4.20-5.50) X10*6/uL Hgb 12.6 (12.0-16.0) g/dl Hct 38.8 (37.0-47.0) % MCV 85.8 (80.0-98.0) fL MCH 27.9 (27.0-33.0) pg MCHC 32.5 (31.0-35.0) g/dl RDW 14.5 (11.0-16.0) % Plt Count 246 (160-400) X10*3/uL MPV 10.9 (9.4-12.3) fL Immature Gran % (Auto) 0.4 (0.0-0.4) % Neut % (Auto) 71.6 (45-73) % Lymph % (Auto) 18.3 L (20-40) % Hitchcock % (Auto) 6.5 (2-11) % Eos % (Auto) 2.4 (0-4) % Baso % (Auto) 0.8 (0-2) % Lymph # (Auto) 1.5 (1.2-4.9) X10*3/uL Hitchcock # (Auto) 0.5 (0.1-1.2) X10*3/uL Eos # (Auto) 0.2 (0.0-0.4) X10*3/uL Baso # (Auto) 0.1 (0.0-0.2) X10*3/uL Abs Immat Gran (auto) 0.03 (0.00-0.03) X10*3/uL Absolute Neuts (auto) 5.7 (2.0-8.3) x10*3/uL Absolute Nucleated RBC 0.000 (0.0-0.012) X10*3/uL Nucleated RBC % (auto) 0.0 (0.0-0.2) /100WBC Sodium 140 (135-145) mmol/L Potassium 4.5 (3.3-5.1) mmol/L Chloride 107 (96-108) mmol/L Carbon Dioxide 27 (22-29) mmol/L Anion Gap 11 L (12-20) BUN 8 L (9-16) mg/dL Creatinine 0.67 (0.5-1.4) mg/dL Estim Creat Clear Calc 106.3 Estimated GFR > 60 Random Glucose 91 (60-115) mg/dL Uric Acid Cancelled Calcium 8.9 (8.4-10.2) mg/dL Urine Color YELLOW Urine Appearance HAZY Urine pH 8.0 (5.0-8.0) Ur Specific [place] 1.015 (1.005-1.025) Urine Protein NEG (NEG-TRACE) MG/DL Urine Glucose (UA) NEG (NEG) MG/DL Urine Ketones NEG (NEG) MG/DL Urine Blood 3+ H (NEG) Urine Nitrite NEG (NEG) Ur Leukocyte Esterase NEG (NEG) Urine RBC 10-14 H (0) /HPF Urine WBC 0 (0-4) /HPF Ur Squamous Epith Cells 1+ /LPF Urine Bacteria NONE /LPF Urine Test (NEGATIVE) 01/13/22 Range/Units 08:04 WBC (4.8-10.8) X10*3/uL RBC (4.20-5.50) X10*6/uL Hgb (12.0-16.0) g/dl Hct (37.0-47.0) % MCV (80.0-98.0) fL MCH (27.0-33.0) pg MCHC (31.0-35.0) g/dl RDW (11.0-16.0) % Plt Count (160-400) X10*3/uL MPV (9.4-12.3) fL Immature Gran % (Auto) (0.0-0.4) % Neut % (Auto) (45-73) % Lymph % (Auto) (20-40) % Hitchcock % (Auto) (2-11) % Eos % (Auto) (0-4) % Baso % (Auto) (0-2) % Lymph # (Auto) (1.2-4.9) X10*3/uL Hitchcock # (Auto) (0.1-1.2) X10*3/uL Eos # (Auto) (0.0-0.4) X10*3/uL Baso # (Auto) (0.0-0.2) X10*3/uL Abs Immat Gran (auto) (0.00-0.03) X10*3/uL Absolute Neuts (auto) (2.0-8.3) x10*3/uL Absolute Nucleated RBC (0.0-0.012) X10*3/uL Nucleated RBC % (auto) (0.0-0.2) /100WBC Sodium (135-145) mmol/L Potassium (3.3-5.1) mmol/L Chloride (96-108) mmol/L Carbon Dioxide (22-29) mmol/L Anion Gap (12-20) BUN (9-16) mg/dL Creatinine (0.5-1.4) mg/dL Estim Creat Clear Calc Estimated GFR Random Glucose (60-115) mg/dL Uric Acid Calcium (8.4-10.2) mg/dL Urine Color Urine Appearance Urine pH (5.0-8.0) Ur Specific [place] (1.005-1.025) Urine Protein (NEG-TRACE) MG/DL Urine Glucose (UA) (NEG) MG/DL Urine Ketones (NEG) MG/DL Urine Blood (NEG) Urine Nitrite (NEG) Ur Leukocyte Esterase (NEG) Urine RBC (0) /HPF Urine WBC (0-4) /HPF Ur Squamous Epith Cells /LPF Urine Bacteria /LPF Urine Test NEGATIVE (NEGATIVE) Imaging Data uterine ultrasound: Attestation: I personally reviewed and interpreted this imaging study as follows: Radiologist's impression: IMPRESSION: *Redemonstration of enlarged heterogeneous uterine matrix, might be sequela of large fibroid engulfing/replacing the myometrial wall and or adenomyomatosis. POWER PLANT ASSISTANT consultation and/or follow-up outpatient MRI pelvis with contrast recommended. ? *Endometrium could not be well delineated on today's exam obscured by heterogeneity shadowing from the uterine wall. ? *Cystic structure right ovary likely dominant follicle.? Discharge Plan Discharge Clinical Impression: DUB (dysfunctional uterine bleeding), Abnormal ultrasound Patient Disposition: Home, Self-Care Instructions: Dysfunctional Uterine Bleeding (ED) Additional Instructions: Terrell ultrasonido muestra maría masa en terrell ?tero. Zeba se calvin en terrell ultrasonido anterior. Debe hacer un seguimiento con terrell ginec?logo en [facility] la pr?xima semana. Prescriptions: New ibuprofen 800 mg tablet 800 mg PO Q8H PRN (Reason: pain) Qty: 60 0RF No Action ibuprofen 800 mg tablet 800 mg PO Q8H PRN (Reason: pain) Qty: 14 0RF doxycycline monohydrate 100 mg capsule 100 mg PO BID 10 Days Qty: 20 0RF cephalexin 500 mg capsule 500 mg PO BID 10 Days Qty: 20 0RF oxycodone-acetaminophen [Percocet] 5-325 mg tablet 1 tab PO Q6H PRN (Reason: pain) Qty: 10 0RF naproxen 500 mg tablet 500 mg PO BID PRN (Reason: pain) Qty: 14 0RF nitrofurantoin monohyd/m-cryst [Macrobid] 100 mg capsule 100 mg PO Q12H 7 Days Qty: 14 0RF Rx Instructions: must administer with a meal/food medroxyprogesterone [Provera] 10 mg tablet 10 mg PO DAILY 9 Days Qty: 9 0RF Rx Instructions: start on 10/14 chlorhexidine gluconate [Antiseptic Skin Clnsr(chlorhe)] 4 % liquid 1 appl topical ONCE Qty: 473 1RF Rx Instructions: wash area of boils weekly mupirocin 2 % ointment 1 appl topical BID 7 Days Qty: 15 0RF Interventions: ED Discharge Assessment Last Done: 01/13/22 12:17 Discharge Date/Time: 01/13/22 12:22
[2022-01-13 10:57] VITALS: BP 127/75; PULSE 48; RESP 12; TEMP 37; O2SAT 100
[2022-01-13] MEDS: Ketorolac Tromethamine 60 MG/2 ML VIAL IM (12:04)
[2022-01-13 12:07] VITALS: BP 108/50; PULSE 50; RESP 16; TEMP 36.8; O2SAT 99
== END 2022-01-13 12:22 | disposition home or self-care (01) ==
PROVIDERS: Nurse Practitioner Family; Emergency Provider Emergency Medicine; PCP Internal Medicine
DX: N93.8 Other specified abnormal uterine and vaginal bleeding (principal); R93.89 Abnormal findings on diagnostic imaging of other specified body structures; R10.30 Lower abdominal pain, unspecified
CPT/HCPCS: 36415; 76830; 76856; 80048; 81001; 81025; 85025; 96372; 99284; J1885

== ENCOUNTER 2022-05-23 01:54 | Emergency (ER) | payer OTHER, SELFPAY ==
--- NOTE | 2022-05-23 | ECG_ITS ---
Test Reason : CHEST PAIN Blood Pressure : / mmHG Vent. Rate : 061 BPM Atrial Rate : 061 BPM P-R Int : 104 ms QRS Dur : 072 ms QT Int : 426 ms P-R-T Axes : 000 058 059 degrees QTc Int : 428 ms Sinus rhythm with short WI Otherwise normal ECG No previous ECGs available Referred By: Generic ED Physician Electronically Signed By:LESLIE ZURITA
[2022-05-23 01:57] VITALS: BP 126/63; PULSE 65; RESP 16; TEMP 36.7; O2SAT 98; BMI 21.6
[2022-05-23] MEDS: Ondansetron ODT 4 MG TAB.RAPDIS TRANSLINGU (02:04)
[2022-05-23 02:14] LABS: MANUAL DIFF FLAG NO
[2022-05-23 02:17] LABS: Basophils Absolute Auto 0.1 X10*3/uL (0.0-0.2); Basophils Percent Auto 0.4 % (0-2); Eosinophils Absolute Auto 0.1 X10*3/uL (0.0-0.4); Hematocrit 42.9 % (37.0-47.0); Hemoglobin 14.1 g/dl (12.0-16.0); Imm Gran Abs Auto 0.07 X10*3/uL (0.00-0.03); Imm Gran Pct Auto 0.5 % (0.0-0.4); Lymphocytes Absolute Auto 1.6 X10*3/uL (1.2-4.9); Lymphocytes Percent Auto 12.1 % (20-40); Mean Corpuscular HGB Conc 32.9 g/dl (31.0-35.0); Mean Corpuscular Volume 85.1 fL (80.0-98.0); Mean Platelet Volume 11.6 fL (9.4-12.3); Monocytes Absolute Auto 0.6 X10*3/uL (0.1-1.2); Monocytes Percent Auto 4.7 % (2-11); Neutrophils Percent Auto 81.3 % (45-73); Platelet Count 213 X10*3/uL (160-400); Red Blood Count 5.04 X10*6/uL (4.20-5.50); Red Cell Distribution Width 14.6 % (11.0-16.0); White Blood Count 13.5 X10*3/uL (4.8-10.8)
[2022-05-23 02:40] LABS: Alanine Aminotransferase 14 U/L (0-31); Albumin Level 4.4 g/dL (3.5-5.0); Alkaline Phosphatase 88 U/L (39-117); Anion Gap 12 (12-20); Aspartate Amino Transferase 23 U/L (5-31); Bilirubin Direct 0.3 mg/dL (0.0-0.5); Bilirubin Total 0.7 mg/dL (0.0-1.0); Blood Urea Nitrogen 11 mg/dL (9-16); Calcium 9.6 mg/dL (8.4-10.2); Carbon Dioxide 24 mmol/L (22-29); Chloride 107 mmol/L (96-108); Creatinine Clr Calc Pharmacy 90.3; Estimated Glomerular Filt Rate > 60; Glucose Random 115 mg/dL (60-115); Lipase 42 U/L (8-78); Potassium 4.1 mmol/L (3.3-5.1); Sodium 139 mmol/L (135-145); Total Protein 7.4 g/dL (6.5-8.0)
--- NOTE | 2022-05-23 05:06 | PC.NURSE ---
Pt called for triage reassessment, Pt not in waiting room.
--- NOTE | 2022-05-23 05:47 | PC.NURSE ---
Pt called for triage reassessment. Pt not in waiting room, Pt name called 3 times no answer.
== END 2022-05-23 05:48 | disposition left against medical advice (07) ==
PROVIDERS: Emergency Provider Emergency Medicine
DX: R10.13 Epigastric pain (principal); R11.2 Nausea with vomiting, unspecified; R19.7 Diarrhea, unspecified
CPT/HCPCS: 36415; 80053; 82248; 83690; 85025; 93005; 99283